=== PATIENT | female | born 1940 | race Caucasian/White ===

== ENCOUNTER 2020-04-28 04:31 | Emergency (ER) | payer OTHER ==
[~2020-04-28 04:31] MED LIST: ACETAMINOPHEN500 M1 PO; ALTACE5 MG PO; BISOPROLOL FUMAR5 MG PO; CARAFATE1 GM PO; CEFDINIR300 MG PO; CRANBERRY500 M3 PO; DIAZEPAM 5MG TAB5 MG PO; DULERA 200 MCG8.8 GM INH; FOLIC ACID1 MG PO; MACROBID100 MG PO; METFORMIN HCL500 MG PO; OYSCO 500+D TA1 EACH PO; POLYSACCHARIDE150 M1 PO; PROTONIX 40MG T40 MG PO; SYNTHROID100 MCG PO; TYLENOL SINUS1 EAC2 PO; VALIUM10 MG PO
[2020-04-28 05:16] LABS: BASOPHIL 0.3 % (0-2); EOSINOPHIL 0 % (0-7); HCT 30.4 % (37.0-47.0); HGB 9.7 g/dl (12.5-16.0); LYMPHOCYTE 9.5 % (15-48); MCH 28.8 pg (25.0-31.0); MCHC 31.9 g/dL (32.0-36.0); MCV 90.2 fL (78.0-100.0); MONOCYTE 6.6 % (0-12); MPV 8.8 fL (6.0-9.5); NEUTROPHIL 82.9 % (41-80); NRBC 0; PLT 240 K/uL (150-400); RBC 3.37 M/uL (4.20-5.40); RDW 17.9 % (11.5-14.0); WBC 16.8 K/uL (4.0-10.5)
[2020-04-28 05:36] LABS: ALBUMIN 2.5 g/dL (3.4-5.0); BILIRUBIN - TOTAL 0.3 mg/dL (0.2-1.0); BUN/CREAT RATIO (CALC) 16.2 RATIO; CREATININE 1.73 mg/dL (0.51-0.95); GLOBULIN (CALCULATION) 4.9 g/dL; POTASSIUM 4.4 mmol/L (3.5-5.1); TOTAL PROTEIN 7.4 g/dL (6.4-8.2)
[2020-04-28 05:41] LABS: LACTIC ACID 1.6 mmol/L (0.4-1.9)
[2020-04-28 06:01] LABS: BILIRUBIN 1+ mg/dL (NEGATIVE); BLOOD 3+ Ery/uL (NEGATIVE); CLARITY CLEAR (CLEAR); COLOR YELLOW (YELLOW); GLUCOSE (U) TRACE mg/dL (NORMAL); LEUKOCYTES 2+ Leu/uL (NEGATIVE); NITRITE POSITIVE (NEGATIVE); PROTEIN 3+ mg/dL (NEGATIVE); SPECIFIC GRAVITY 1.015 (1.001-1.030); pH 6.5 (5.0-9.0)
[2020-04-28 06:08] LABS: URINARY RBC TNTC
[2020-04-28 08:07] LABS: CORONAVIRUS 2019 SARS-COV-2 NEGATIVE (NEGATIVE)
[2020-04-28 08:08] LABS: INFLUENZA A NAA NEGATIVE (NEGATIVE)
== END 2020-04-28 13:30 | disposition other institution (70) ==
LOC: FER 04:31
PROVIDERS: Emergency Medicine Emergency Medical Services
DX: S22.038A Other fracture of third thoracic vertebra, initial encounter for closed fracture (principal); N13.6 Pyonephrosis; R55 Syncope and collapse; R10.31 Right lower quadrant pain; R10.32 Left lower quadrant pain; R51.9 Headache, unspecified; E11.9 Type 2 diabetes mellitus without complications; J44.9 Chronic obstructive pulmonary disease, unspecified; E03.9 Hypothyroidism, unspecified; Z87.891 Personal history of nicotine dependence; Z88.0 Allergy status to penicillin; Z87.39 Personal history of other diseases of the musculoskeletal system and connective tissue; W18.09XA Striking against other object with subsequent fall, initial encounter; Y92.009 Unspecified place in unspecified non-institutional (private) residence as the place of occurrence of the external cause; Z20.822 Contact with and (suspected) exposure to COVID-19
CPT/HCPCS: 36415; 70450; 71045; 72125; 72128; 72131; 80053; 81001; 83605; 84145; 84484; 85025; 87088; 93005; J0696; U0002

== ENCOUNTER 2020-06-22 13:24 | Emergency (ER) | payer OTHER ==
[2020-06-22 14:10] LABS: BILIRUBIN 1+ mg/dL (NEGATIVE); BLOOD 3+ Ery/uL (NEGATIVE); GLUCOSE (U) NORMAL (NORMAL); LEUKOCYTES 3+ Leu/uL (NEGATIVE); NITRITE POSITIVE (NEGATIVE); PROTEIN 2+ mg/dL (NEGATIVE); UROBILINOGEN 0.2 mg/dL (0.2-1.0); pH 6.5 (5.0-9.0)
[2020-06-22 14:11] LABS: CLARITY CLOUDY (CLEAR); COLOR RED (YELLOW)
[2020-06-22 14:13] LABS: BACTERIA 1+; URINARY RBC TNTC
[2020-06-22 14:29] LABS: BASOPHIL 0.8 % (0-2); EOSINOPHIL 2.3 % (0-7); HCT 26.8 % (37.0-47.0); LYMPHOCYTE 34.7 % (15-48); MCH 31.2 pg (25.0-31.0); MCHC 32.8 g/dL (32.0-36.0); MONOCYTE 8.3 % (0-12); MPV 8.9 fL (6.0-9.5); NEUTROPHIL 53.4 % (41-80); NRBC 0; PLT 221 K/uL (150-400); RBC 2.82 M/uL (4.20-5.40); RDW 14.9 % (11.5-14.0); WBC 6.6 K/uL (4.0-10.5)
[2020-06-22 14:31] LABS: HGB 8.8 g/dl (12.5-16.0)
[2020-06-22 14:39] LABS: INR 1.25 (0.9-1.2); PROTHROMBIN TIME 14.9 SECONDS (11.4-13.6)
[2020-06-22 14:40] LABS: PTT 41.9 SECONDS (22.2-34.7)
[2020-06-22 14:45] LABS: BUN/CREAT RATIO (CALC) 15.5 RATIO; CREATININE 0.84 mg/dL (0.51-0.95); POTASSIUM 3.5 mmol/L (3.5-5.1)
[2020-06-22] MEDS ORDERED: CIPRO500 MG PO (16:20)
== END 2020-06-22 16:44 | disposition home or self-care (01) ==
LOC: FER 13:24
PROVIDERS: Emergency Medicine
DX: T83.030A Leakage of cystostomy catheter, initial encounter (principal); E11.22 Type 2 diabetes mellitus with diabetic chronic kidney disease; N18.9 Chronic kidney disease, unspecified; J44.9 Chronic obstructive pulmonary disease, unspecified; Z87.440 Personal history of urinary (tract) infections; Z88.0 Allergy status to penicillin; Y84.6 Urinary catheterization as the cause of abnormal reaction of the patient, or of later complication, without mention of misadventure at the time of the procedure
CPT/HCPCS: 36415; 80048; 81001; 85025; 85610; 85730; 87076; 87088; 99283

== ENCOUNTER 2021-04-27 13:34 | Emergency (ER) | payer SELFPAY ==
[~2021-04-27 13:34] MED LIST changes: +CIPRO500 MG PO
[2021-04-27 16:56] LABS: BASOPHIL 0.2 % (0-2); EOSINOPHIL 0.1 % (0-7); HCT 35.2 % (37.0-47.0); HGB 10.6 g/dl (12.5-16.0); LYMPHOCYTE 21.3 % (15-48); MCH 26.7 pg (25.0-31.0); MCHC 30.1 g/dL (32.0-36.0); MCV 88.7 fL (78.0-100.0); MONOCYTE 5.7 % (0-12); MPV 8.8 fL (6.0-9.5); NEUTROPHIL 71.3 % (41-80); NRBC 0; PLT 311 K/uL (150-400); RBC 3.97 M/uL (4.20-5.40); RDW 15.3 % (11.5-14.0); WBC 8.5 K/uL (4.0-10.5)
[2021-04-27 17:12] LABS: BILIRUBIN NEGATIVE (NEGATIVE); BLOOD 3+ Ery/uL (NEGATIVE); CLARITY CLEAR (CLEAR); COLOR YELLOW (YELLOW); GLUCOSE (U) NORMAL (NORMAL); LEUKOCYTES 3+ Leu/uL (NEGATIVE); NITRITE POSITIVE (NEGATIVE); PROTEIN 2+ mg/dL (NEGATIVE); SPECIFIC GRAVITY 1.025 (1.001-1.030); UROBILINOGEN 0.2 mg/dL (0.2-1.0)
[2021-04-27 17:13] LABS: CREATININE 1.21 mg/dL (0.51-0.95); POTASSIUM 4.3 mmol/L (3.5-5.1)
[2021-04-27 17:20] LABS: BACTERIA 4+; URINARY RBC TNTC; URINARY WBC TNTC
[2021-04-27 17:26] LABS: LACTIC ACID 1.7 mmol/L (0.4-1.9)
[2021-04-27] MEDS ORDERED: CIPRO500 MG PO (18:33)
== END 2021-04-27 18:40 | disposition home or self-care (01) ==
LOC: FER 13:34
PROVIDERS: Nurse Practitioner Family
DX: N39.0 Urinary tract infection, site not specified (principal); E11.9 Type 2 diabetes mellitus without complications; J44.9 Chronic obstructive pulmonary disease, unspecified; Z88.0 Allergy status to penicillin
CPT/HCPCS: 36415; 80048; 81001; 83605; 85025; 87088; 99284; J7040

== ENCOUNTER 2021-12-13 14:03 | Day surgery (SDCO) | payer OTHER ==
[~2021-12-13] VITALS: Ht 152.4 cm; Wt 49.9 kg
[2021-12-13 15:59] LABS: BASOPHIL 0.4 % (0-2); EOSINOPHIL 1.1 % (0-7); HCT 30.4 % (37.0-47.0); HGB 9.3 g/dl (12.5-16.0); LYMPHOCYTE 17.7 % (15-48); MCH 26.8 pg (25.0-31.0); MCHC 30.6 g/dL (32.0-36.0); MCV 87.6 fL (78.0-100.0); MONOCYTE 6.2 % (0-12); MPV 9.2 fL (6.0-9.5); NEUTROPHIL 74.2 % (41-80); NRBC 0; PLT 295 K/uL (150-400); RBC 3.47 M/uL (4.20-5.40); RDW 21.7 % (11.5-14.0); WBC 11.2 K/uL (4.0-10.5)
[2021-12-13 16:09] LABS: INR 1.1 (0.9-1.2); PROTHROMBIN TIME 13.9 SECONDS (11.9-13.9)
[2021-12-13 16:17] LABS: ALBUMIN 2.4 g/dL (3.4-5.0); BILIRUBIN - TOTAL 0.3 mg/dL (0.2-1.0); BUN/CREAT RATIO (CALC) 15.9 RATIO; CREATININE 1.13 mg/dL (0.51-0.95); GLOBULIN (CALCULATION) 4.6 g/dL; POTASSIUM 4.5 mmol/L (3.5-5.1)
[2021-12-13 16:20] LABS: LACTIC ACID 0.9 mmol/L (0.4-1.9)
[2021-12-13 18:02] LABS: BILIRUBIN NEGATIVE (NEGATIVE); BLOOD 3+ Ery/uL (NEGATIVE); CLARITY CLEAR (CLEAR); COLOR YELLOW (YELLOW); GLUCOSE (U) NORMAL (NORMAL); LEUKOCYTES 3+ Leu/uL (NEGATIVE); NITRITE NEGATIVE (NEGATIVE); PROTEIN 1+ mg/dL (NEGATIVE); SPECIFIC GRAVITY 1.025 (1.001-1.030); UROBILINOGEN 0.2 mg/dL (0.2-1.0); pH 5.5 (5.0-9.0)
[2021-12-13 18:10] LABS: MUCOUS MODERATE; URINARY RBC TNTC; URINARY WBC TNTC
[2021-12-13 18:11] LABS: YEAST PRESENT
--- NOTE | 2021-12-15 16:46 | NUR ---
12/15/21 1545 DAUGHTER ARRIVED ON FLOOR FOR DAY AND STATED AT NURSES STATION "WHAT'S GOING ON HERE. MY MOM IS COVERED IN SHIT" AND WALKED BACK TO ROOM. RN AND RAISER HELPER GATHERED MATERIALS TO GET PT CHANGED AND ENTERED ROOM TO CHANGE BEDDING, CLEAN PATIENT, WASH HAIR, AND CLEAN UNDER FINGER NAILS. FAMILY EDUCATED ON NOT USEING SANITARY WIPES ON PT SKIN. FAMILY SPOKE TO NURSE EQUIPMENT OR MACHINERY CLEANER ABOUT SPEAKING TO PT ADVOCATE ABOUT THE SITUATION. PRIMARY RAISER HELPER STATED CLEANING UP AND CHANGING PATIENT AFTER LUNCH AND WAS MAKING HER WAY TO PT ROOM. RN ROUNDED AND CHECKED IN ON PATIENT SEVERAL TIMES THROUGHOUT SHIFT R/T PT SCREAMING "NURSE" WITH THE LAST ROUND BEING AROUND 1400. NO NEEDS AT THAT TIME. FAMILY LEFT OFF THE FLOOR AT 1645. PT RESUMED SCREAMING FOR NURSE WITHOUT ANY NEEDS WHEN ADDRESSED
--- NOTE | 2021-12-16 00:03 | NUR ---
LATE ENTRY: PATIENT BECAME MORE AGITATED AT 2130 IN PAIN AND YELLING FOR NURSE AND AIDE. PAIN MEDS GIVEN PER ORDER WITH RESULTS. PATIENT CONTINUES TO HOLLAR OUT MULTIPLE TIMES, PATIENT IS ONLY CALM WITH SOMEONE AT BEDSIDE.
--- NOTE | 2021-12-16 13:17 | NUR ---
12/16/21 Per previous social assessments, Ms. Hope lives at home with her daughter and son-in-law, Mariely and Alon Perdomo. She has a rollator, s. chair, hospital bed, wc and 3in1. - Ms. Hope is a [place] Citizen and not eligible for [place] Medicaid beyond the Emergency Medicaid. Her insurance will on Jan 02. Ms. Hope draws $1800. Old Age Pension per month into her [place] bank account. - Ms. Hope was recently admitted to [facility] with a dx of CVA. She was also dx with gallbladder cancer with liver mets. [facility] to [facility] daughter's home when a Hospice bed could not be located. - [facility] patient. - Medicaid Office was contacted. Ms. Hope is not eligible NH or Hospice services because she does not meet Immigration criteria; no green card nor meet refugee status. - Ms. Post reports: no longer has [place] health insurance because she has been out of the country for 6 months. The insurance would not be re-instated until after she was back in the country for 6 months. - Ms. Post reports, Ms. Hope to be on the waiting list at the [facility]. - This geriatric social worker agreed to inquire with the 2 local [facility] if they will consider accepting patient for her income of $1800. (1260. [place] dollars). [facility] declined the offer. - Clinicals have been sumitted to Magy Ritter, [facility] geriatric social worker. She will inquire a a scholarship is available for Hospice services. Jayy
--- NOTE | 2021-12-16 15:13 | NUR ---
12/16/21 Ms. Shireen mclain was admitted from [place]. They will accept her back. A new COVID test is required.
[2021-12-18] MEDS ORDERED: COLACE100 MG PO (11:47)
--- NOTE | 2021-12-18 14:31 | NUR ---
12/18/21 [facility] will assume care for Ms. Hope per Shayla Holland. Meghan Flowers, [facility], , reports that Ms. Hope is not eligible for the [facility] as long as she test positive for COVID. Ms. Flowers will have someone from [facility] to telephone this social work. Tavia with [facility], , reports that they will accept patient for home care. No prescriptions are needed. No additional DME is required. Ms. Hope has been taking off her 02. Her sats are at 90%. - [facility] will not cover the cost of EMS. - Ms. Perdomo, daughter, is agreeable to take her mother home. Ms. Perdomo agreed to sign the EMS ABN form. - Ms. Perdomo states that she will not needed additional help since [facility] will be coming to the home. Ms. Perdomo voiced understanding that [facility] does not come to the home each day. A list of sitter services was included in the discharge instruction packet.
== END 2021-12-18 15:15 | disposition home or self-care (01) ==
LOC: FER 14:03 → FMS 18:49
PROVIDERS: Emergency Medicine; ADMIT Internal Medicine
DX: C23 Malignant neoplasm of gallbladder (principal); I69.954 Hemiplegia and hemiparesis following unspecified cerebrovascular disease affecting left non-dominant side; U07.1 COVID-19; C78.7 Secondary malignant neoplasm of liver and intrahepatic bile duct; I10 Essential (primary) hypertension; J44.9 Chronic obstructive pulmonary disease, unspecified; Z88.0 Allergy status to penicillin; Z87.891 Personal history of nicotine dependence
CPT/HCPCS: 36415; 71045; 80053; 81001; 83605; 83690; 84145; 85025; 85610; 87040; 87088; G0378; J2270; U0002